=== PATIENT | female | born 1970 | race Hispanic/Latino ===

== ENCOUNTER 2018-11-19 09:47 | Day surgery (SDC) | payer MEDICAID ==
[~2018-11-19] VITALS: Ht 149.9 cm; Wt 85.4 kg
[2018-11-19] VITALS (13 sets, daily range): BP systolic 85–116; BP diastolic 43–84
[~2018-11-19 09:47] MED LIST: ESOM40CA PO; INSLAN SQ; LEVO175T9 PO; LINA5TAB PO; LISI-617 PO; METF-446 PO; SENN-141 PO; SODIUM CHLORIDE 0.9% 1000ML 1,000 ML IV ONE; SUCR1TAB28 PO; TOPI150C4 PO; VENL-63 PO; WHEA1POW2 PO
[2018-11-19] MEDS ORDERED: TOPI200T16 PO (11:03)
[2018-11-19] MEDS ORDERED: LISI2.5T2 PO (11:03)
[2018-11-19] MEDS ORDERED: LINA290C PO (11:03)
[2018-11-19] MEDS ORDERED: LISI-617 PO (11:03)
[2018-11-19] MEDS ORDERED: HYOS-28 PO (11:03)
[2018-11-19] MEDS ORDERED: LINA5TAB PO (11:03)
[2018-11-19] MEDS ORDERED: MULT-1203 PO (11:03)
[2018-11-19] MEDS ORDERED: BISA5TAB12 PO (11:03)
[2018-11-19] MEDS ORDERED: ERGO500014 PO (11:03)
[2018-11-19] MEDS ORDERED: MELO-106 PO (11:03)
[2018-11-19] MEDS ORDERED: PROPOFOL 10 MG/ML 20ML VIAL IV ONE ×2 (11:15)
--- NOTE | 2018-11-19 11:45 | NUR ---
Update Patient with blood glucose of 59mg/dl. Patient is sedated without signs of diaphoresis at this time.
[2018-11-19] MEDS ORDERED: DEXTROSE 50%-WATER 25 GM/50 ML VIAL IV SCH (11:50)
[2018-11-19] MEDS ORDERED: DEXTROSE 50%-WATER 50 ML DISP.SYRIN IV ONE (11:50)
--- NOTE | 2018-11-19 11:55 | NUR ---
Update Patient with a blood sugar level of 59mg/dl at 1145. C. CAROLEE Daniel informed and ordered to give half an amp of dextrose and recheck glucose level. Recheck blood glucose level after twenty minutes was 103mg/dl.
== END 2018-11-19 12:55 | disposition home or self-care (01) ==
LOC: DAH 09:47 → ENDO 09:47
PROVIDERS: ATTEND Internal Medicine Gastroenterology
DX: K63.89 Other specified diseases of intestine (principal); E03.9 Hypothyroidism, unspecified; I10 Essential (primary) hypertension; G40.909 Epilepsy, unspecified, not intractable, without status epilepticus; D64.9 Anemia, unspecified; K76.0 Fatty (change of) liver, not elsewhere classified; Z98.890 Other specified postprocedural states; Z80.0 Family history of malignant neoplasm of digestive organs; E11.42 Type 2 diabetes mellitus with diabetic polyneuropathy; Z79.899 Other long term (current) drug therapy; Z79.4 Long term (current) use of insulin; Z79.84 Long term (current) use of oral hypoglycemic drugs; Z68.38 Body mass index [BMI] 38.0-38.9, adult; M19.90 Unspecified osteoarthritis, unspecified site
CPT/HCPCS: 45380; 82948 ×3; 88305; A4606; J2704 ×2; J7030; J7070

== ENCOUNTER → 2025-02-14 | Outpatient (CLI) | payer MEDICAID ==
[~2025-02-14] MED LIST changes: +BISA-151 PO; +ERGO500014 PO; +HYOS-28 PO; +LINA290C PO; -LISI-617 PO; +LISI2.5T13 PO; +LISI5TAB21 PO; +MELO-106 PO; +MULT-1203 PO; -SODIUM CHLORIDE 0.9% 1000ML 1,000 ML IV ONE; -TOPI150C4 PO; +TOPI200T68 PO
[2025-02-14 12:31] LABS: CREATININE 0.9 mg/dL (0.5-1.0); POTASSIUM 3.9 mmol/L (3.5-5.1)
== END | disposition home or self-care (01) ==
LOC: LAB 08:20
PROVIDERS: ATTEND Internal Medicine
DX: R07.9 Chest pain, unspecified (principal)
CPT/HCPCS: 36415; 80048

== ENCOUNTER → 2025-02-20 | Outpatient (CLI) | payer MEDICAID ==
[~2025-02-20] MED LIST changes: +IOHEXOL 350 MG/ML 100ML INFUS..BTL IV ONE; +metoPROLOL tartRATE 1 MG/ML 5ML VIAL IV ONE
--- NOTE | 2025-02-20 09:47 | HMCIMG ---
CT CARDIAC ANGIO W/CONT. CCTA HISTORY: Chest pain COMPARISON: None TECHNIQUE: Multiple sequential axial images of the chest were obtained along with the CT angiogram of the chest study. Patient was given 100 cc of Omnipaque through intravenous route. FINDINGS: There is no evidence of pulmonary nodule or parenchymal disease. No pleural effusion or pericardial effusion is seen. There is no evidence of pneumothorax. There are normal size mediastinal and hilar lymph nodes. The heart is not enlarged. Degenerative changes of the thoracolumbar spine are present. IMPRESSION: 1. No evidence of pulmonary nodule or effusion is seen. Please see CT angiogram report of coronary arteries.
--- NOTE | 2025-02-21 09:53 | CARDIOLOGY ---
RAD REPORT: [facility] ANGIO RADIOLOGY REPORT: CORONARY CT ANGIOGRAPHY DATE: Feb 21, 2025 QUALITY: Excellent CLINICAL HISTORY AND INDICATION: [ chest pain ] TECHNIQUE: After obtaining a preliminary supervisor inspection room image, contrast imaging performed on an [employer] [id number] scanner. A dedicated, limited window, coronary imaging protocol was used, with single breath-hold, retrospective ECG gating, and automated arrhythmia rejection. 100 cc of low osmolar contrast agent: Omnipaque 350 was delivered via a 18-gauge IV catheter in the right antecubital fossa, using a power injector and followed by 60 cc of normal saline bolus as a chaser. Collimated images were reformatted at 0.5 mm intervals, and sent to an offline independent workstation for interpretation, using 3D anatomic reconstructions: Curved multiplanar reconstructions, maximum intensity projections, and multiplanar imaging. 10 mg IV metoprolol was administered prior to scanning. 0.8 mg SL nitroglycerin was given. CORONARY ARTERY DESCRIPTIONS: The coronary arteries arise in normal position. Left main coronary artery: Normal caliber vessel that bifurcates into the LAD and LCx. No stenosis. Left anterior descending coronary artery: Normal caliber vessel and gives rise to diagonal and septal branches. No stenosis. Left circumflex coronary artery: Normal caliber, nondominant and gives rise to two large OM branches. No stenosis. Right coronary artery: Large, dominant vessel giving rise to the PL and PDA branches. No stenosis. CAD-RADs: 0, absence of CAD. Thoracic Aorta: Normal diameter. Cristin Gallegos MD Cardiovascular Disease [facility] CRISTIN GALLEGOS MD Feb 21, 2025 09:53
== END | disposition home or self-care (01) ==
LOC: RAH 08:12
PROVIDERS: ATTEND Internal Medicine
DX: R07.9 Chest pain, unspecified (principal); M47.815 Spondylosis without myelopathy or radiculopathy, thoracolumbar region
CPT/HCPCS: 75574; J3490; Q9967